=== PATIENT | male | born 1990 | race Caucasian/White ===

== ENCOUNTER → 2017-01-24 | Outpatient (CLI) | payer BC ==
[~2017-01-24] MED LIST: HYOS0.1264 PO; LISD20CA3 PO
--- NOTE | 2017-01-24 15:11 | RAD ---
EXAM: Right hand, 3 views. HISTORY: Bowling injury. COMPARISON: None. FINDINGS: Frontal, lateral and oblique views of the right hand are obtained. There is no fracture, dislocation or subluxation. IMPRESSION: No acute osseous finding.
== END | disposition home or self-care (01) ==
LOC: DXRADRC 14:22
PROVIDERS: ATTEND Nurse Practitioner Family
DX: M79.641 Pain in right hand (principal); X58.XXXA Exposure to other specified factors, initial encounter; Y93.89 Activity, other specified; Y92.89 Other specified places as the place of occurrence of the external cause; Y99.8 Other external cause status
CPT/HCPCS: 73130